=== PATIENT | female | born 1970 | race Caucasian/White ===

== ENCOUNTER 2017-05-16 15:55 | Outpatient (CLI) | payer BC ==
[~2017-05-16] VITALS: Ht 170.2 cm; Wt 69.1 kg
[2017-05-16 17:09] VITALS: Ht 170.2 cm; Wt 69.1 kg
--- NOTE | 2017-05-16 20:27 | NUR ---
PATIENT TRANSFERRED TO ROOM 2230 TO COMPLETE REMAINDER OF TRANSFUSION, SECOND UNIT TRANSFUSING WITHOUT DIFFICULTY, PATIENT DENIES COMPLAINTS, NO SIGNS OR SYMPTOMS OF TRANSFUSION REACTION. PATIENT LYING IN BED, WATCHING TV, TALKING WITH VISITORS IN ROOM
--- NOTE | 2017-05-16 20:46 | NUR ---
RECIEVED PT TO FLOOR VIA WHEELCHAIR FROM OUTPATIENT. BLOOD INFUSING TO LEFT AC. VSS. NO NEEDS ARE VOICED. PT ORIENTED TO ROOM AND USE OF CALL LIGHT. SIDE RAILS ARE UP X 2. BED IS IN LOWEST POSITION. CALL LIGHT IS WITHIN REACH.
--- NOTE | 2017-05-16 21:30 | NUR ---
BLOOD FININSHED INFUSING AND TUNE FLUSHING. VSS. NO SIGNS OF REACTION. WILL MONITOR. SIDE RAILS X 2. BED LOW. CALL LIGHT IN REACH.
--- NOTE | 2017-05-16 22:31 | NUR ---
IV TO LEFT AC D/C'D WITH CATH TIP INTACT. PT WHEELED DOWN TO AWAITING FAMILY VIA WHEELCHAIR. DISCHARGE INSTRUCTIONS GIVEN AND SIGNED.
== END 2017-05-16 22:32 | disposition home or self-care (01) ==
LOC: D.OPS 15:55 → D.MS 20:40 → D.OPS 22:32
DX: R79.89 Other specified abnormal findings of blood chemistry (principal)

== ENCOUNTER 2017-07-06 14:10 | Day surgery (SDC) | payer BC ==
[~2017-07-06] VITALS: Ht 170.2 cm; Wt 68.6 kg
[2017-07-06 15:03] LABS: BASOPHILS 0.2 % (0-2); EOSINOPHILS 1.2 % (0-7); HEMATOCRIT 36.4 % (36.0-48.0); HEMOGLOBIN 11.4 g/dL (12-16); MCH 27.8 pg (26.0-34.0); MCHC 31.3 g/dL (31.0-37.0); MCV 88.8 fL (80.0-100.0); MEAN PLATELET VOLUME 9.5 fL (7.4-10.4); MONOCYTES 7.1 % (2-11); NEUTROPHILS 70.5 % (40-80); PLATELET COUNT 228 10x3/uL (130-400); RDW 22.2 % (11.5-14.5)
[2017-07-06 15:11] LABS: INR 0.99 (0.85-1.17); PROTIME 12.9 SECONDS (11.6-15.0)
[2017-07-06 15:13] LABS: HCG SERUM NEGATIVE (NEGATIVE)
[2017-07-06] MEDS ORDERED: MONONESSA1 TAB PO (19:30)
--- NOTE | 2017-07-06 19:30 | NUR ---
REC'D PT AA&O X 4 SITTING UP ON THE BED. PT DENIES PAIN AT PRESENT. VERBALZIES UNDERSTANDING OF PROCEDURE. CONSENTS OBTAINED FOR D&N WITH HISTOROSCOPY,ANESTHESIA CONSENT AND BLOOD ADMIN CONSENT. ADMIT ASSESSMENT AND HISTORY COMPLETED. PT CURRENTLY HAS A SALINE LOCK TO LEFT HAND W/20GUAGE CATH. SITE FLUSHED W/5ML NS. SITE PATENT. WNL W/OUT REDNESS OR SWELLING. SEE FLOWSHEET FOR V/S. PT HAS A PURSE AND HUA MENDEZ JEWELRY ALONG W/PANTS AND SHOES THAT SHE HAS INTRUSTED TO THE RN TO PLACE IN A LOCKER IN THE [facility] LOCKER ROOM ON L&D. PLACED IN LOCKER #14.PT TO AWAIT SUERGERY TO COME GET HER FOR PROCEDURE.
[2017-07-06 19:39] VITALS: BP 138/60; Ht 170.2 cm; Wt 68.6 kg
--- NOTE | 2017-07-06 20:00 | NUR ---
SURGERY MEMBERS TO L&D. PT TO REG BED TO BE TRANSPORTED VIA BED TO SURGERY. NS 1000ML W/TUBING PROVIDED FOR OR CREW. SENT W/PT.
--- NOTE | 2017-07-06 22:00 | NUR ---
REC'D PT BACK FROM RECOVERY AFTER D&C WITH HISTOROSCOPY VIA BED. PT AA&O X 4. PAIN ASSESSED. PT STATES "I DON'T REALLY HAVE ANY PAIN, MAYBE SOME CRAMPING." RATES 1/. PIV TO LEFT HAND W/NS CONNECTED. BAG PLACED ON PUMP TO INFUSE AT 50ML/HR. Q 15MIN X 1HR V/S STARTED. PT CURRENTLY HAVE ICE CHIPS AND IS TOLERATING WELL. CONTINUED POC DISCUSSED W/PT. PT VERBALIZES UNDERSTANDING AND IS AGREEABLE. PT PLANS TO DISCHARGE HOME AT MIDNIGHT. BED LOW, SIDE RAILS UP X 2. CALL LIGHT AND PHONE AT PT'S SIDE.
[2017-07-06 22:04] VITALS: BP 135/75
[2017-07-06 22:20] VITALS: BP 134/77
--- NOTE | 2017-07-06 22:20 | NUR ---
THIS RN TO ROOM. PT AA&O X 4. CONTINUES TO RATE PAIN 10/25. ICE WATER SERVED. NO NEEDS VOICED AT THIS TIME. TEMP OBTAINED CHARTED.
[2017-07-06 22:50] VITALS: BP 129/74
--- NOTE | 2017-07-06 22:50 | NUR ---
PT REMAINS IN LOW SIMS'S AA&O X 4. CONTINUES TO RATE PAIN 1/10. HAS DRANK ALL THE LARGE WATER SERVED. TOLERATED WELL. NO NEEDS VOICED.
--- NOTE | 2017-07-06 23:15 | NUR ---
THIS RN RETURNS TO ROOM. TEMP TAKEN. CHARTED. PT DENIES NAUSEA. PAIN STILL 10/25. PT REPORTS SHE PLANS TO DISCHARGE HOME AT MIDNIGHT ONCE SHE IS ABLE TO VOID.
--- NOTE | 2017-07-06 23:45 | NUR ---
THIS RN RETURNS TO ROOM. PT CONTINUES TO DENIES PAIN OR NAUSEA. REPORTS SHE FEELS LIKE SHE COULD VOID. PT'S IV SITE SALINE LOCKED. PT DENIES DIZZINESS. OOB. AMBULATORY TO BR. ABLE TO VOID APPROX 450ML URINE. PT DESIRES TO BE DISCHARGED HOME. SALINE LOCK D/C'D INTACT. SITE WNL. BAND AID PLACED OVER SITE. PT TO DRESS WHILE DISCHARGE PAPERS PROCESSED AND FRIEND TO BE CALLED TO COME DRIVE PT HOME.
--- NOTE | 2017-07-06 23:59 | NUR ---
PT'S FRIEND NETO CALLED TO REQUEST SHE COME TO THE ER TO DRIVE PT HOME. NETO WILL BE ENROUTE TO [facility].
--- NOTE | 2017-07-07 00:04 | NUR ---
THIS RN TO BEDSIDE FOR DISCHARGE TEACHING. PT INSTRUCTED NOT TO PLACE ANYTHING IN THE VAGINAL VAULT X 2 WEEKS. NO SEX,DOUCHING OR TAMPONS UNTIL HER 2 WEEK FOLLOW UP APPT W/ DR VASQUEZ. PT QUESTIONS IF SHE CAN RESUME EXERCISING. PT INSTRUCTED TO CALL [facility] IN THE AM TO MAKE A 2 WEEK FOLLOW UP W/DR VASQUEZ AND TO ASK DR VASQUEZ'S NURSE IF THERE ARE ANY RESTRICTIONS SHE NEEDS TO FOLLOW THERE WERE NONE GIVEN TO THIS RN. PT PROVIDED W/PRESCRIPTION FOR DEMEROL 50MG PO TO BE TAKEN NEEDED EVERY 4HRS. PT DENIES ANY FURTHER QUESTIONS AT THIS TIME.
--- NOTE | 2017-07-07 00:10 | NUR ---
PT TRANSPORTED VIA W/C TO ER TO AWAIT HER FRIEND TO PICK HER UP. PT OFF UNIT IN STABLE CONDITION PER Marcy MAGALLANES RN
--- NOTE | 2017-07-13 07:56 | HP ---
PATIENT: OTILIA MCINTYRE [facility] MEDICAL RECORD: [id number] ACCOUNT: [id number] LOCATION:[facility] : 70 ADMISSION DATE: 07/06/17 HISTORY AND PHYSICAL EXAMINATION HISTORY: This patient is a 46-year-old 3, para 2, AB 1 white female with history of excessively heavy menstrual cycles, especially in the last 2 or 3 cycles, one of which required hospitalization and blood transfusion and another that required repeated blood work and iron supplementation. She has done several things in the past to ameliorate this problem. A Mirena IUD was placed in June of 2015 and currently she has been taking oral contraceptives to control her bleeding. However, in spite of these efforts, she had an extremely heavy day of bleeding prior to this admission. Laboratory work at this time and vital signs are stable. DRUG ALLERGIES: None known. CURRENT MEDICATIONS: Oral contraceptives. MEDICAL PROBLEMS: None known. FAMILY HISTORY: Noncontributory. HABITS: Nonsmoker. PHYSICAL EXAMINATION: GENERAL: Well-developed and well-nourished white female, in no distress. HEENT: Unremarkable. LUNGS: Clear. HEART: Regular rate and rhythm. BREASTS: Deferred. PELVIC: Current and deferred. EXTREMITIES: No cyanosis, clubbing, or edema. NEUROLOGIC: Grossly intact. IMPRESSION: Severe menorrhagia, needs further evaluation and stabilization. PLAN: Examination under anesthesia with hysteroscopy, endometrial biopsies, and thorough endometrial curettage; all indicated procedures. TRANSINT:[id number] Voice Confirmation ID: [id number] DOCUMENT ID: [id number] CHANDU VASQUEZ MD at 0756 CC: [id number] DICTATION DATE: 07/06/171807 PRIVATE CLIENT ADVISOR: 07/06/171939 [facility] 07/07/17 [place] [id number] [place] [id number]
== END 2017-07-07 00:15 | disposition home or self-care (01) ==
LOC: OBSVTIME → D.OPS 14:10 → D.ER 14:10 → EDSTATUS 15:14 → D.LD 17:20 → OBSVTIME 17:20 → D.ER 17:20 → D.LD 17:20 → D.OPS 07-07 00:15 → D.LD 07-07 00:15
PROVIDERS: Emergency Medicine
DX: N92.0 Excessive and frequent menstruation with regular cycle (principal); D64.9 Anemia, unspecified; Z01.812 Encounter for preprocedural laboratory examination

== ENCOUNTER 2017-08-30 05:05 | Inpatient (IN) | payer BC ==
[2017-08-29 15:56] LABS: BASOPHILS 0.3 % (0-2); EOSINOPHILS 1.6 % (0-7); HEMOGLOBIN 12.4 g/dL (12-16); IMMATURE GRANULOCYTES 0.2 % (0-5); LYMPHOCYTES 22.5 % (15-50); MCH 29.7 pg (26.0-34.0); MCHC 32.6 g/dL (31.0-37.0); MCV 91.1 fL (80.0-100.0); MEAN PLATELET VOLUME 9.1 fL (7.4-10.4); MONOCYTES 10.7 % (2-11); NEUTROPHILS 64.7 % (40-80); PLATELET COUNT 206 10x3/uL (130-400); RBC 4.17 10x6/uL (4.00-5.40); RDW 14.3 % (11.5-14.5); WBC 6.2 10x3/uL (4.8-10.8)
[2017-08-29 16:09] LABS: CALC OSMOLALITY 281 mosm/kg (275-300); CALCIUM 8.7 mg/dL (8.5-10.1); CARBON DIOXIDE 30.9 mmol/L (21.0-32.0); CHLORIDE - SERUM 106 mmol/L (98-107); CREATININE - SERUM 0.7 mg/dL (0.6-1.3); GLUCOSE 104 mg/dL (74-106); POTASSIUM - SERUM 4.1 mmol/L (3.5-5.1); SODIUM 142 mmol/L (136-145); UREA NITROGEN 10 mg/dL (7-18); eGFR NON AFRICAN AMERICAN > 90 mL/min (90-120)
[~2017-08-30] VITALS: Ht 170.2 cm; Wt 70.0 kg
[2017-08-30] VITALS (13 sets, daily range): BP systolic 104–138; BP diastolic 57–79; Ht 170.2 cm; Wt 70.0 kg
[~2017-08-30 05:05] MED LIST: FERROUS SULFAT325 MG PO; MONONESSA1 TAB PO; MULTIPLE VITAMI1 TA1 PO; OS-CAL500 MG PO
--- NOTE | 2017-08-30 07:26 | HP ---
PATIENT: OTILIA MCINTYRE [facility] MEDICAL RECORD: [id number] ACCOUNT: [id number] LOCATION:[facility] [place] [place]- : 70 ADMISSION DATE: 08/30/17 HISTORY AND PHYSICAL EXAMINATION HISTORY OF PRESENT ILLNESS: This patient is a 46-year-old 3, para 2, AB 1 white female with history of severe menorrhagia to the point of needing a blood transfusion. She has undergone endometrial biopsy and is scheduled for hysterectomy. Her endometrial biopsy was benign, had an atrophic appearance. A second opinion was obtained to confirm benign nature of the biopsy, results are in her [facility] chart. Her Pap smear is negative. PAST MEDICAL HISTORY: The patient had Mirena for many years to control abnormal bleeding, which worked well until recently. She has also been on oral contraceptives to control bleeding, which worked well until recently. FAMILY HISTORY: Noncontributory. HABITS: Nonsmoker. PHYSICAL EXAMINATION: GENERAL: A well-developed, well-nourished female in no distress. HEENT: Grossly unremarkable. LUNGS: Clear. HEART: Regular rate and rhythm. ABDOMEN: Soft and nontender. PELVIC: Current and deferred. EXTREMITIES: No cyanosis, clubbing, or edema. NEUROLOGIC: Grossly intact. IMPRESSION: History of severe menorrhagia to the point of anemia and blood transfusion, previously controlled with IUD followed by oral contraceptives, endometrial biopsy read as benign with articulation of ba immunophenotype can overlap endometrial cancer. PLAN: Total abdominal hysterectomy with probable salpingectomy and plan ovarian conservation if possible. I have discussed with the patient the indications for her procedure, the risks of her surgery and answered all her questions. TRANSINT:[id number] Voice Confirmation ID: [id number] DOCUMENT ID: [id number] CHANDU VASQUEZ MD at 0726 CC: [id number] DICTATION DATE: 08/29/17 1619 RESIDENTIAL PROPERTY MANAGER: 08/29/17 1707 ADM IN [place] [id number] [place] [id number]
[2017-08-30 07:58] LABS: HCG SERUM NEGATIVE (NEGATIVE)
--- NOTE | 2017-08-30 14:33 | NUR ---
PT GIVEN SOME JELLO TO EAT.
--- NOTE | 2017-08-30 16:59 | NUR ---
PT IS RESTING IN BED. HER HISTORY AND ASSESSMENT WERE DONE. HER OUTPUT WAS 450 CC. ENCOURAGED HER TO DRINK MORE WATER. SHE AGREED. HER IV IS PATENT LEFT WRIST WITH LR RINGERS AT 125CC/H WITH DEMEROL ELECTRICIAN HELPER INTACT. BED IS LOW, SIDE RAILS UP X 2 AND CALL LIGHT IN REACH. SHE IS OFF HE4R O2 AND HER O2 HAS BEEN NORMAL RANGE WITH NO COMPLAINTS.
--- NOTE | 2017-08-30 18:50 | NUR ---
RECEIVED REPORT FROM MICHEAL ROB RN
--- NOTE | 2017-08-30 19:10 | NUR ---
ASSESSMENT PER FLOW SHEET, VS OBTAINED, IV IN LEFT HAND INTACT WITH NO REDNESS OR EDEMA INFUSING VIA PUMP LR AT 125 ML/HR, DEMEROL STARCHER AND TENTER RANGE FEEDER TO TO DELIVER 10MG/10MINS PER PT'S DEMAND FOR PAIN CONTROL, PT RATES INC PAIN 01/23, PT INST ON AND VERBALIZES UNDERSTANDING OF STARCHER AND TENTER RANGE FEEDER, BIKINI INC WITH LARGE DRESSING CDI WITH NO DRAINAGE NOTED, FRESH ICE PACK TO INC, LITE BLEEDING WITH 1 SMALL CLOT NOTED ON MARIE PAD, MARIE PAD CHANGED, MCCANN CATH INTACT, SECURED TO LEG WITH STATLOCK, DRAINING DARK YELLOW URINE, PT ENC TO DRINK PLENTY OF FLUIDS AT THIS TIME, FRESH H20 SERVED, PT DENIES FLATUS, PT INST ON AND DEMONSTRATED I.S., SCD SLEEVES NOTED TO BE ON BUT NOT CONNECTED TO A PUMP AT THIS TIME, PT INFORMED THAT I WILL GET A STARCHER AND TENTER RANGE FEEDER PUMP FOR THE SCD'S, PT INST ON AND VERBALIZES UNDERSTANDING OF SCD'S, BED IN LOW POSITION, SIDE RAILS X 2, CALL LIGHT IN REACH
--- NOTE | 2017-08-30 20:00 | NUR ---
PT AWAKE, SCD'S CONNECTED TO PUMP AND WORKING PROPERLY, PT DENIES NEEDS AT THIS TIME
--- NOTE | 2017-08-30 21:11 | NUR ---
PT AROUSES TO OPENING OF DOOR, ADM TORADOL SIVP OVER 2 MINUTES PER MD ORDERS, SEE EMAR, PT DEMONSTRATED I.S. WITH GOOD EFFORT, REQUESTS TO STAY ON BACK AT THIS TIME, DID POSITION SELF FURTHER UP IN BED, PT OFFERED SNACK, REQUESTED AND SERVED ORANGE POPSICLE, PT DENIES FURTHER NEEDS
--- NOTE | 2017-08-30 22:15 | NUR ---
PT RESTING WITH EYES CLOSED, RESP QUIET, NO DISTRESS NOTED, LEFT UNDISTURBED AT THIS TIME
[2017-08-31 00:17] VITALS: BP 94/51
--- NOTE | 2017-08-31 00:17 | NUR ---
PT RESTING WITH EYES CLOSED, AROUSES TO SOFT VERBAL STIMULATION, VS OBTAINED, NEW BAG OF LR HUNG VIA PUMP INFUSING AT 125 ML/HR, ADM TYLENOL PO PER MD ORDERS, SEE EMAR, WITH FRESH H20, EMPTIED 300 MLS OF DARK YELLOW URINE FROM MCCANN, PT ENC AND SERVED FRESH H20, MARIE PAD CHANGED, SCANT VAG BLEEDING NOTED, FRESH ICE PACK TO ABD, SCD'S CONTINUE ON AND WORKING PROPERLY, DENIES NEEDS AT THIS TIME
--- NOTE | 2017-08-31 02:20 | NUR ---
PT RESTING WITH EYES CLOSED, RESP QUIET, NO DISTRESS NOTED, LEFT UNDISTURBED AT THIS TIME
--- NOTE | 2017-08-31 04:12 | NUR ---
PT RESTING WITH EYES CLOSED, RESP QUIET, NO DISTRESS NOTED, LEFT UNDISTURBED AT THIS TIME
[2017-08-31 04:31] VITALS: BP 94/49
--- NOTE | 2017-08-31 04:31 | NUR ---
NEW VIAL OF DEMEROL TO CUT OUT PRESS OPERATOR, ADM TORADOL SIVP PER MD ORDERS, SEE EMAR, VS OBTAINED, I&O'S COLLECTED, FRESH ICE PACK TO ABD, FRESH H20 SERVED, PT DENIES NEEDS, LAB TO ROOM FOR AM BLOOD DRAW
[2017-08-31 05:46] LABS: HEMATOCRIT 31.5 % (36.0-48.0); HEMOGLOBIN 10.1 g/dL (12-16); MCH 29.7 pg (26.0-34.0); MCHC 32.1 g/dL (31.0-37.0); MCV 92.6 fL (80.0-100.0); MEAN PLATELET VOLUME 9.8 fL (7.4-10.4); RBC 3.4 10x6/uL (4.00-5.40); RDW 14.6 % (11.5-14.5); WBC 6.5 10x3/uL (4.8-10.8)
--- NOTE | 2017-08-31 06:13 | NUR ---
PT RESTING WITH EYES CLOSED, AROUSES TO SOFT VERBAL STIMULATION, ADM TYLENOL PO PER MD ORDERS, SEE EMAR, PT DENIES NEEDS AT THIS TIME
--- NOTE | 2017-08-31 06:50 | NUR ---
SHIFT REPORT TO MICHEAL ROB RN
[2017-08-31 07:15] VITALS: BP 105/53
--- NOTE | 2017-08-31 07:24 | NUR ---
PT WAS RECEIVED THIS AM LYING IN BED AWAKE. STATES THAT SHE IS FEELING BETTER THIS AM. SHE STATES THAT HER PAIN IS A 2/10 IN HER ABDOMEN. GEN- AWAKE AND ALERT. LUNGS- CLEAR. PT USING INCENTIVE TADEO. HEART- RRR. ABD- SOFT WITH TENDERNESS WITH BULKY DRESSING OVER INCISION. EXT WITH SCD'S. IV NOTED L FOREARM AND IS PATENT. LR INFUSING. DEMEROL REPORTING CONSULTANT. BED IS LOW, SIDE RAILS UP X 2 AND CALL LIGHT IN REACH. REFRESHED WATER AND GAVE HER COFFEE THIS AM.
--- NOTE | 2017-08-31 08:22 | NUR ---
IV WAS SALINE LOCKED. IV PATENT.
--- NOTE | 2017-08-31 09:53 | NUR ---
PT IS UP TO BATHROOM TO VOID. TOLERATED WELL.
--- NOTE | 2017-08-31 13:33 | NUR ---
PT IS RESTING IN BED, WATCHING TV. BED IS LOW, SIDE RAILS UP X 2 AND CALL LIGHT IN REACH. PT WAS GIVEN HER LAST DOSE OF TORADOL GIVEN IV WITH NS. PT STILL HAS NOT VOIDED. ENCOURAGED HER TO DRINK LIQUIDS.
--- NOTE | 2017-08-31 14:14 | NUR ---
PT UP TO VOID. TOLERATED GETTING UP WELL. VOIDED 450 CC. PT ALSO DOING ORAL AND FACIAL CARE.
--- NOTE | 2017-08-31 14:51 | NUR ---
PT IS SLEEPING. BED IS LOW, SIDE RAILS UP X 2 AND CALL LIGHT IN REACH.
--- NOTE | 2017-08-31 15:50 | NUR ---
PT IS SLEEPING IN BED. SIDE RAILS UP X 2, CALL LIGHT IN REACH AND BED IS LOW.
--- NOTE | 2017-08-31 18:15 | NUR ---
PT HAS NOT WANTED TO GET A SHOWER ALL DAY. HAVE ENCOURAGED HER ALL DAY TO SHOWER AND AMBULATE. REMOVED DRESSING OVER BIKINI LINE INCISION.J STERI STRIPS INTACT. INCISION CLEAN DRY AND INTACT. MARIE PAD PLACED OVER INCISION. INCISION CARE DISCUSSED.
--- NOTE | 2017-08-31 18:50 | NUR ---
RECEIVED SHIFT REPORT FROM MICHEAL ROB RN
[2017-08-31 19:15] VITALS: BP 104/60
--- NOTE | 2017-08-31 19:15 | NUR ---
ASSESSMENT PER FLOW SHEET, VS OBTAINIED, SALINE LOCK IN LEFT HAND INTACT WITH NO REDNESS OR EDEMA, BIKINI INC WITH STERI STRIPS CDI WITH NO DRAINAGE NOTED, MARIE PAD OVER INC FOR COMFORT AND MOISTURE CONTROL, PT RATES INC PAIN 11/25, INFORMED PT THAT I WILL CHECK TO SEE WHEN PAIN MED IS DUE AND ADM, PT VERBALIZES UNDERSTANDING, STATES "I'M DOING OK RIGHT NOW", PT REPORTS FLATUS, NO BM, VOIDING BY SELF WITH NO DIFFICULTY AND SCANT VAG BLEEDING, PT REQUESTED AND SERVED FRESH H20 AND VANILLA ICE CREAM, DENIES FURTHER NEEDS
--- NOTE | 2017-08-31 20:06 | NUR ---
PT UP IN BR AT THIS TIME, PT READY FOR PAIN MED, INFORMED PT THAT I WILL BE BACK IN JUST A FEW MINUTES, PT VERBALIZES UNDERSTANDING
--- NOTE | 2017-08-31 20:09 | NUR ---
PT OUT OF BR, JUST FINISHING UP BRUSHING TEETH, ADM PERCOCET PO PER MD ORDERS, PT STATES "I THINK I'M GOING TO TAKE A LITTLE WALK", PT AMB OUT OF ROOM, GAIT STEADY, AMB AROUND UNIT SEVERAL TIMES AND THEN BACK TO ROOM
--- NOTE | 2017-08-31 21:01 | NUR ---
PT RESTING WITH EYES CLOSED, RESP QUIET, NO DISTRESS NOTED, LEFT UNDISTURBED AT THIS TIME
--- NOTE | 2017-08-31 22:09 | NUR ---
PT RESTING WITH EYES CLOSED, RESP QUIET, NO DISTRESS NOTED, LEFT UNDISTURBED AT THIS TIME
[2017-09-01 00:06] VITALS: BP 120/64
--- NOTE | 2017-09-01 00:06 | NUR ---
PT AWAKE, VS OBTAINED, ADM PERCOCET PO PER MD ORDERS, SEE EMAR, PT DENIES FURTHER NEEDS
--- NOTE | 2017-09-01 01:11 | NUR ---
PT RESTING WITH EYES CLOSED, RESP QUIET, NO DISTRESS NOTED,LEFT UNDISTURBED AT THIS TIME
--- NOTE | 2017-09-01 02:17 | NUR ---
PT AWAKE, AMB IN [place], GAIT STEADY, RATES INC PAIN -04/24, INFORMED PT THAT I WILL ADM PAIN MED AT 3AM, PT VERBALIZES UNDERSTANDING, PT AMB BACK TO ROOM
[2017-09-01 03:03] VITALS: BP 140/74
--- NOTE | 2017-09-01 03:03 | NUR ---
PT AWAKE, VS OBTAINED, ADM PERCOCET PO PER MD ORDERS, SEE EMAR, PT DENIES FURTHER NEEDS
--- NOTE | 2017-09-01 04:30 | NUR ---
PT RESTING WITH EYES CLOSED, RESP QUIET, NO DISTRESS NOTED, LEFT UNDISTURBED AT THIS TIME
--- NOTE | 2017-09-01 06:10 | NUR ---
PT AWAKE, ADM PERCOCET PO PER MD ORDERS, SEE EMAR, PT UP TO BR, GAIT STEADY, PT INST TO USE CALL LIGHT FOR ANY ASSISTANCE, PT VERBALIZES UNDERSTANDING, DENIES FURTHER NEEDS
[2017-09-01 07:15] VITALS: BP 148/76
--- NOTE | 2017-09-01 07:15 | NUR ---
PT IS RECEIVED THIS AM LYING IN BED. SHE STATES THAT SHE HAD A BAD NIGHT. SHE STATES THAT SHE WAS JUST HURTING. HER PAIN THIS AM IS A 3. GEN- AWAKE AND ALERT. LUNGS- CLEAR. HEART- RRR. ABD- SOFT WITH TENDERNESS. INCISION CLEAN AND DRY. STERI STRIPS INTACT. MARIE PAD WITH SMALL LOCIA RUBRA. BED IS LOW, SIDE RAILS UP X 2 AND CALL LIGHT IN REACH. INSTRUCTED PT THAT SHE NEEDED TO GET A SHOWER THIS AM AND AMBULATE IN HALLWAYS. BED IS LOW, SIDE RAILS UP X 2 AND CALL LIGHT IN REACH.
--- NOTE | 2017-09-01 07:45 | NUR ---
DR VASQUEZ IS HERE TO SEE PT. NEW ORDERS NOTED.
--- NOTE | 2017-09-01 07:59 | NUR ---
PT IS UP AND AMBULATING IN HALLWAYS.
--- NOTE | 2017-09-01 08:18 | NUR ---
PT IS UP TO SHOWER. SALINE LOCK D'CD LEFT FOREARM. TIP INTACT.
[2017-09-01] MEDS ORDERED: PERCOCET 5-3251 TAB PO (09:29)
[2017-09-01] MEDS ORDERED: IBUPROFEN800 MG PO (09:30)
--- NOTE | 2017-09-01 09:42 | NUR ---
DISCHARGE INSTRUCTIONS GIVEN. DISCUSSED WITH PT AND GAVE HANDOUTS AND PRESCRIPTIONS WELL FU APPT. IF PT HAS ANY PROBLEMS SHE WAS TOLD TO NOTIFY DR CORNELL OFFICE OR CALL US.
== END 2017-09-01 09:45 | disposition home or self-care (01) | DRG 743 ==
LOC: D.SDCHOLD 05:05 → D.WS 05:05 → D.SDCHOLD 08:30 → D.WS 11:49
PROVIDERS: ADMIT Obstetrics & Gynecology
PROC: 0UB70ZZ Excision of Bilateral Fallopian Tubes, Open Approach (ICD-10-PCS; 2017-08-30)
PROC: 0UT90ZZ Resection of Uterus, Open Approach (ICD-10-PCS; principal; 2017-08-30 09:00)
DX: N92.4 Excessive bleeding in the premenopausal period (principal)